=== PATIENT | male | born 1970 | race Hispanic/Latino ===

== ENCOUNTER 2019-09-21 11:17 | Emergency (ER) | payer OTHER ==
[2019-09-21 11:42] LABS: APPEARANCE,URINE Clear (CLEAR); BILIRUBIN,URINE Negative (NEGATIVE); COLOR,URINE Yellow (YELLOW); GLUCOSE, URINE (UA) Negative (NEGATIVE); KETONES,URINE Negative (NEGATIVE); LEUKOCYTE ESTERASE ,URINE Trace (NEGATIVE); NITRATE,URINE Negative (NEGATIVE); OCCULT BLOOD,URINE Negative (NEGATIVE); PROTEIN,URINE Negative (NEGATIVE); UROBILINOGEN,URINE 0.2 mg/dL (0.2-1.0)
[2019-09-21 11:43] LABS: BASOPHILS % (AUTO) 0.2 % (0.0-5.0); EOSINOPHILS % (AUTO) 1.4 % (0.0-8.0); LYMPHOCYTES % (AUTO) 26.1 % (21.0-51.0); MEAN CORPUSCULAR HEMOGLOBIN 34.3 pg (27.0-33.0); MEAN CORPUSCULAR HGB CONC 33.9 g/dL (32.0-36.0); MEAN CORPUSCULAR VOLUME 101.2 fL (79-99); MONOCYTES % (AUTO) 12.1 % (3.0-13.0); NEUTROPHILS % (AUTO) 60.2 % (40.0-77.0); PLATELET COUNT (AUTO) 226 K/uL (130-400); RED BLOOD CELL COUNT(AUTO) 3.95 MIL/uL (4.50-6.20); RED CELL DISTRIBUTION WIDTH 12.5 % (11.0-15.5); WHITE BLOOD COUNT (AUTO) 5.6 K/uL (4.8-10.8)
[2019-09-21] MEDS ORDERED: SODIUM CHLORIDE 0.9% 1000ML 1,000 ML IV ONE (11:48)
[2019-09-21 11:49] LABS: AMPHET/METH SCREEN,URINE NEGATIVE (NEGATIVE); BARBITURATE SCREEN, URINE NEGATIVE (NEGATIVE); BENZODIAZEPINES SCREEN,URINE NEGATIVE (NEGATIVE); CANNABINOID SCREEN,URINE NEGATIVE (NEGATIVE); COCAINE SCREEN,URINE NEGATIVE (NEGATIVE); OPIATE SCREEN,URINE NEGATIVE (NEGATIVE); PHENCYCLIDINE SCREEN,URINE NEGATIVE (NEGATIVE)
[2019-09-21 11:50] LABS: BACTERIA,URINE Rare /HPF (None Seen); RBC,URINE 0-1 /HPF (0-1); SQUAMOUS EPITHELIAL CELL,UR Rare /HPF (0-2); WBC,URINE 0-1 /HPF (0-1)
[2019-09-21] MEDS ORDERED: IPRATROPIUM/ALBUTEROL SULFATE 3 ML SOLUTION IH ONE (11:51)
[2019-09-21 11:54] LABS: CARBON DIOXIDE 25 mmol/L (21-32); CHLORIDE 107 mmol/L (101-111); CREATININE 0.7 mg/dL (0.5-1.5); GLOMERULAR FILTR. RATE CALC 128 mL/min (>60); GLUCOSE,RANDOM 103 mg/dL (70-105); SODIUM SERUM 140 mmol/L (136-145); UREA NITROGEN, BLOOD 14 mg/dL (7-18)
[2019-09-21 11:58] LABS: ACETAMINOPHEN 4 mcg/mL (10-29); ALANINE AMINOTRANSFERASE 28 U/L (12-78); ALBUMIN 2.8 g/dL (3.5-5.0); ALCOHOL, BLOOD < 3 mg/dL (0-10); ASPARTATE AMINOTRANSFERASE 24 U/L (10-37); BILIRUBIN,TOTAL 0.1 mg/dL (0.2-1.0); SALICYLATE 2.8 mg/dL (2.8-20.0); TOTAL PROTEIN, SERUM 6.3 g/dL (6.0-8.3)
== END 2019-09-21 13:27 | disposition home or self-care (01) ==
LOC: EDH 11:17
DX: J40 Bronchitis, not specified as acute or chronic (principal); F14.10 Cocaine abuse, uncomplicated; F10.20 Alcohol dependence, uncomplicated; Y90.9 Presence of alcohol in blood, level not specified; Z72.0 Tobacco use
CPT/HCPCS: 36415; 71045; 80053; 80305; 81001; 85025; 94640; 99285; G0480 ×2; G0481; J7030

== ENCOUNTER 2024-04-06 15:56 | Emergency (ER) | payer BC ==
[~2024-04-06] VITALS: Ht 172.7 cm; Wt 68.0 kg
[2024-04-06 16:09] VITALS: BP 147/75; PULSE 53; RESP 17; O2SAT 98
[2024-04-06] MEDS ORDERED: CLIN-141 PO (16:12)
[2024-04-06] MEDS ORDERED: IBUP-2077 PO (16:12)
[2024-04-06] MEDS ORDERED: KETOROLAC 60 MG VIAL (30MG/ML) IM ONE (16:30)
== END 2024-04-06 16:22 | disposition home or self-care (01) ==
LOC: EDH 15:56
DX: K01.1 Impacted teeth (principal)